=== PATIENT | female | born 1955 | race Caucasian/White ===

== ENCOUNTER 2018-04-27 00:21 | Inpatient (IN) | END 2018-04-28 14:55 | disposition home or self-care (01) | DRG 690 ==

== ENCOUNTER 2018-04-30 17:49 | Emergency (ER) | END 2018-04-30 22:17 | disposition home or self-care (01) ==

== ENCOUNTER 2019-04-09 07:12 | Day surgery (SDC) | payer OTHER ==
[~2019-04-09] VITALS: Ht 162.6 cm; Wt 74.1 kg
[~2019-04-09 07:12] MED LIST: ACAR50TA PO; ATOR40TA68 PO; CHOL100062 PO; CIPR500T4 PO; ESCI10TA48 PO; FAMO20TA18 PO; FENO145T37 PO; HYDR-3980 PO; LEVO500T48 PO; LIRA0.6P SQ; LISI-313 PO; PRAS10TA6 PO; SITA100T11 PO; TAMS-14 PO
[2019-04-09] MEDS ORDERED: ACID REDUCER (07:59)
[2019-04-09] MEDS ORDERED: GLIPIZIDE (07:59)
[2019-04-09] MEDS ORDERED: PRASUGREL (07:59)
[2019-04-09 08:06] VITALS: Ht 162.6 cm; Wt 74.1 kg
[2019-04-09 08:31] VITALS: BP 135/76; PULSE 77; RESP 18
--- NOTE | 2019-04-09 08:38 | PREAC ---
Date/Time of Note Date/Time of Note DATE: 04/09/19 TIME: 08:36 Anesthesia Eval and Record Evaluation Time Pre-Procedure Interview DATE: 04/09/19 TIME: 08:36 Age 63 Sex female NPO: 8 hrs Preoperative diagnosis GERD, screening Planned procedure EGD, colonoscopy Past Medical History Past Medical History: Includes Cardio: HTN, Dyslipidemia, CAD, PTCA/Stent Endo: Diabetes GI: GERD Psych: Depression Surgery & Anesthesia Issues No known issue Meds Anticoagulation: Yes (held 3 days ) Beta Flores within 24 hr: No Reason Beta Flores not given: Pt. not on B-Flores Active Scripts Levofloxacin* (Levaquin*) 500 Mg Tablet, 500 MG PO DAILY for 7 Days, TAB Prov:NELSONOSJOVITASTOLOS A. DO 04/30/18 Ciprofloxacin Hcl* (Ciprofloxacin Hcl*) 500 Mg Tablet, 500 MG PO BID for 10 Days, TAB Prov:LEKKOS,JOVITASTOLOS A. DO 04/30/18 Hydrocodone/Acetaminophen ([place] 10-325 Tablet) 1 Each Tablet, 1 TAB PO Q6H PRN for PAIN, #20 TAB Prov:RICHARDKKOSJOVITASTOLOS A. DO 04/30/18 Tamsulosin Hcl* (Flomax*) 0.4 Mg Cap.er.24h, 0.4 MG PO QPM, #30 CAP Prov:LEKKOS,JOVITASTOLOS A. DO 04/30/18 Prasugrel Hydrochloride* (Effient*) 10 Mg Tablet, 10 MG PO DAILY for 14 Days, #14 TAB Prov:MIKEY BOLIVAR MD 04/28/18 Reported Medications [Prasurgel] No Conflict Check 04/09/19 [Glipizide] No Conflict Check 04/09/19 [Acid [employer]] No Conflict Check 04/09/19 Atorvastatin* (Atorvastatin*) 40 Mg Tablet, 40 MG PO QHS, #30 TAB 04/30/18 Cholecalciferol* (Vitamin D3*) 1,000 Unit Tablet, 1000 UNIT PO DAILY 04/27/18 Liraglutide (Victoza 2-Hunter) 0.6 Mg/0.1 Ml Pen.injctr, 1.2 MG SQ DAILY, SYR 04/27/18 Fenofibrate Nanocrystallized* (Fenofibrate*) 145 Mg Tablet, 145 MG PO DAILY 04/27/18 Sitagliptin* (Januvia*) 100 Mg Tablet, 100 MG PO DAILY, 04/27/18 Acarbose* (Precose*) 50 Mg Tablet, 50 MG PO WITH MEALS, 04/27/18 Famotidine* (Famotidine*) 20 Mg Tablet, 20 MG PO DAILY 04/27/18 Escitalopram Oxalate* (Escitalopram Oxalate*) 10 Mg Tablet, 10 MG PO BID 04/27/18 Lisinopril* (Lisinopril*) 5 Mg Tablet, 5 MG PO BID 02/23/15 Meds reviewed: Yes Allergies Coded Allergies: Nitrofurantoin Macrocrystal (Verified Allergy, Unknown, 04/30/18) Penicillins (Verified Allergy, Unknown, loss of consciousness, 04/30/18) aspirin (Verified Allergy, Unknown, 04/09/19) nitrofurantoin (Verified Allergy, Unknown, 04/30/18) sulfamethoxazole (Verified Allergy, Unknown, 04/30/18) trimethoprim (Verified Allergy, Unknown, 04/30/18) Uncoded Allergies: BEE STING (Allergy, Mild, swelling, 04/26/18) Allergies Reviewed: Yes Labs/Studies Labs Reviewed: Reviewed by anesthesiologist test: N/A Pre-procedure Exam Last vitals Vital Signs Date Temp Pulse Resp B/P (MAP) Pulse Ox O2 O2 Flow FiO2 Time Delivery Rate 04/09/19 98.4 77 18 135/76 100 Room Air 08:31 (95) Airway: Adequate mouth opening, Adequate thyromental dist Mallampati: Mallampati II Teeth: Normal Lung: Normal Heart: Normal ASA Physical Status ASA physical status: 3 Emergency: None Planned Anesthetic General/MAC: Mask Planned Pain Management Parenteral pain med Pre-operative Attestations Prior to commencing anesthesia and surgery, the patient was re-evaluated, there was verification of: *The patient's identity *The results of appropriate recent lab work and preoperative vital signs *The above evaluation not changing prior to induction *Anesthetic plan, risk benefits, alternative and complications discussed with patient/family; questions answered; patient/family understands, accepts and wishes to proceed. LINDA WEEKS MD Apr 09, 2019 08:38
[2019-04-09] MEDS ORDERED: LIDOCAINE 2% (SDV) 5 ML INJ ONE (08:42)
[2019-04-09] MEDS ORDERED: PROPOFOL 40 ML ONE (08:42)
[2019-04-09] MEDS ORDERED: ONDANSETRON 4 MG INJ IV PRN (09:00)
[2019-04-09 09:15] VITALS: BP 123/72; PULSE 74
[2019-04-09 09:21] VITALS: BP 113/77; PULSE 74
[2019-04-09 09:24] VITALS: BP 112/71; PULSE 74
--- NOTE | 2019-04-09 09:24 | PAC ---
Date/Time of Note Date/Time of Note DATE: 04/09/19 TIME: 09:24 Post-Anesthesia Notes Post-Anesthesia Note Last documented vital signs Vital Signs Date Temp Pulse Resp B/P (MAP) Pulse Ox O2 O2 Flow FiO2 Time Delivery Rate 04/09/19 98.4 77 18 135/76 100 Room Air 08:31 (95) Activity: WNL Respiratory function: WNL Cardiovascular function: WNL Mental status: Baseline Pain reasonably controlled: Yes Hydration appropriate: Yes Nausea/Vomiting absent: Yes Comments BP: 118/69 HR: 81 RR: 15 T: 98.4 SaO2: 100% LINDA WEEKS MD Apr 09, 2019 09:24
[2019-04-09 09:40] VITALS: BP 127/76; PULSE 68; RESP 17
== END 2019-04-09 10:04 | disposition home or self-care (01) ==
LOC: GIL 07:12
PROVIDERS: ATTEND Internal Medicine Gastroenterology
DX: Z12.11 Encounter for screening for malignant neoplasm of colon (principal); K57.30 Diverticulosis of large intestine without perforation or abscess without bleeding; K64.4 Residual hemorrhoidal skin tags; K20.8 Other esophagitis; D12.5 Benign neoplasm of sigmoid colon; I10 Essential (primary) hypertension; E78.5 Hyperlipidemia, unspecified; I25.10 Atherosclerotic heart disease of native coronary artery without angina pectoris; E11.9 Type 2 diabetes mellitus without complications
CPT/HCPCS: 43239; 45380; 82962; 88305; Z7610